=== PATIENT | female | born 1960 | race Caucasian/White ===

== ENCOUNTER 2021-11-28 11:47 | Outpatient (CLI) | payer MEDICAID, SELFPAY ==
--- NOTE | 2021-11-28 13:26 | W.ANESCHARGE ---
Anesthesia Charges Start Date/Time Anesthesia Start Date: 11/28/21 Anesthesia Start Time: 12:27 Stop Date/Time Anesthesia Stop Date: 11/28/21 Anesthesia Stop Time: 13:20 Summary Emergency: No
== END 2021-11-28 11:48 | disposition home or self-care (01) ==
LOC: OP CLINIC 11:49
PROVIDERS: PCP Physician Assistant; Visit Provider Surgery
DX: Z12.11 Encounter for screening for malignant neoplasm of colon (principal); K57.30 Diverticulosis of large intestine without perforation or abscess without bleeding
CPT/HCPCS: 45378; 812; J2405

== ENCOUNTER 2022-11-29 14:37 | Outpatient (CLI) | payer MEDICAID, SELFPAY ==
--- NOTE | 2022-11-29 15:00 | CRLHL7_ITS ---
For Patients: As a result of the Century Cures Act, medical imaging exams and procedure reports are released immediately into your electronic medical record. You may view this report before your referring provider. If you have questions, please contact your health care provider. BILATERAL SCREENING MAMMOGRAM WITH COMPUTER-AIDED DETECTION TECHNIQUE: CC and MLO views were obtained. These mammographic images have been obtained using full-field digital technique. These mammographic images were interpreted with the benefit of computer-aided detection. COMPARISON FILM: 08/04/20, 06/19/18, 06/22/16. FINDINGS: There are scattered areas of fibroglandular density IMPRESSION: There is no radiographic evidence for malignancy. ASSESSMENT: BI-RADS Category 1: Negative RECOMMENDATION: Routine screening mammogram in 1 year. A lay language report of this examination will be provided to the patient. Dami Villasenor M.D. Diagnostic/Nuclear Medicine Radiologist [email or web address] PAULA/Dictated by: Dami Villasenor MD @ 11/30/2022 9:15:00 AM (Electronically Signed)
== END 2022-11-29 14:38 | disposition home or self-care (01) ==
LOC: MAMMO 14:38
PROVIDERS: PCP Physician Assistant; Visit Provider Physician Assistant
DX: Z12.31 Encounter for screening mammogram for malignant neoplasm of breast (principal)
CPT/HCPCS: 77063; 77067